=== PATIENT | male | born 1985 | race Caucasian/White ===

== ENCOUNTER 2020-10-23 21:47 | Emergency (ER) | payer BC, OTHER ==
[2020-10-23] MEDS ORDERED: BENADRYL 25MG C25 MG PO (23:55)
[2020-10-23] MEDS ORDERED: PREDNISONE20 MG PO (23:55)
== END 2020-10-23 23:59 | disposition home or self-care (01) ==
LOC: ER1 21:47
DX: T78.40XA Allergy, unspecified, initial encounter (principal)
CPT/HCPCS: 99283